=== PATIENT | female | born 1995 | race Caucasian/White ===

== ENCOUNTER 2018-01-23 11:38 | Emergency (ER) | payer BC ==
[~2018-01-23] VITALS: Ht 152.4 cm; Wt 81.8 kg
[~2018-01-23 11:38] MED LIST: MOBIC15 MG PO; MOTRIN400 MG PO; PERCOCET 5/31 TABLET PO
[2018-01-23 12:00] LABS: HEMATOCRIT 40.9 % (36.0-46.0); HEMOGLOBIN 14.1 G/DL (11.9-15.5); MCH 29.8 PG (29.0-34.0); MCHC 34.5 G/DL (30.0-36.0); MCV 86.5 FL (83-99); PLATELET COUNT 260 K/uL (156-360); RBC DIS.WIDTH-CV 12.3 % (11.8-14.6); RBC DIS.WIDTH-SD 39.4 % (39-53); RED BLOOD COUNT 4.73 M/uL (3.80-5.20)
[2018-01-23 12:12] LABS: CHLORIDE 107 mEq/L (99-109); POTASSIUM 4.3 mEq/L (3.7-5.4); SODIUM 139 mEq/L (136-147)
[2018-01-23 12:14] LABS: GLUCOSE 90 mg/dL (70-99)
[2018-01-23 12:18] LABS: CREATININE 0.7 mg/dL (0.6-1.3); GFR ESTIMATE (CALCULATED) > 59 mL/min/
[2018-01-23 12:19] LABS: UREA NITROGEN (BUN) 12 mg/dL (9-23)
[2018-01-23 12:24] LABS: TROP-I INTERPRETATION NEGATIVE; TROPONIN-I < 0.01 ng/mL (0.0-0.30)
[2018-01-23 15:33] VITALS: BP 119/69
== END 2018-01-23 15:34 | disposition home or self-care (01) ==
LOC: EME 11:38
DX: R51 Headache (principal); R07.9 Chest pain, unspecified; G40.909 Epilepsy, unspecified, not intractable, without status epilepticus
CPT/HCPCS: 71046; 80048; 84484; 85027; 93005; 99281; 99285; J0780; J1200; J7040

== ENCOUNTER 2018-04-01 22:39 | Emergency (ER) | payer BC ==
[~2018-04-01] VITALS: Ht 170.2 cm; Wt 87.2 kg
[2018-04-01 23:08] LABS: HEMATOCRIT 38.7 % (36.0-46.0); HEMOGLOBIN 13.1 G/DL (11.9-15.5); MCHC 33.9 G/DL (30.0-36.0); MCV 88.8 FL (83-99); PLATELET COUNT 242 K/uL (156-360); RBC DIS.WIDTH-CV 12.8 % (11.8-14.6); RBC DIS.WIDTH-SD 41.5 % (39-53); RED BLOOD COUNT 4.36 M/uL (3.80-5.20); WHITE BLOOD COUNT 6.8 K/uL (4.1-10.2)
[2018-04-01 23:21] LABS: CHLORIDE 109 mEq/L (99-109); POTASSIUM 4.7 mEq/L (3.7-5.4); SODIUM 140 mEq/L (136-147)
[2018-04-01 23:22] LABS: GLUCOSE 95 mg/dL (70-99)
[2018-04-01 23:26] LABS: CREATININE 0.7 mg/dL (0.6-1.3); GFR ESTIMATE (CALCULATED) > 59 mL/min/
[2018-04-01 23:27] LABS: UREA NITROGEN (BUN) 12 mg/dL (9-23)
[2018-04-01 23:31] LABS: TROP-I INTERPRETATION NEGATIVE; TROPONIN-I < 0.01 ng/mL (0.0-0.30)
[2018-04-02 00:02] VITALS: BP 133/96
[2018-04-02] MEDS ORDERED: NAPROSYN500 MG PO (00:18)
[2018-04-02] MEDS ORDERED: FLEXERIL10 MG PO (00:18)
== END 2018-04-02 01:15 | disposition left against medical advice (07) ==
LOC: EME 22:39
DX: M54.2 Cervicalgia (principal); R68.84 Jaw pain; M62.838 Other muscle spasm; Z91.041 Radiographic dye allergy status; Z53.20 Procedure and treatment not carried out because of patient's decision for unspecified reasons
CPT/HCPCS: 71046; 80048; 84484; 85027; 93005; 99281; 99283